=== PATIENT | female | born 1930 | race Caucasian/White ===

== ENCOUNTER → 2017-03-09 | Outpatient (CLI) | payer MEDICARE ==
[~2017-03-09] VITALS: Ht 170.2 cm; Wt 61.2 kg
[~2017-03-09] MED LIST: ASPIRIN 81MG TA81 MG PO; CYANOCOBAL1000 MCG/1 IM; HYDROCHLOROTHIA25 M1 PO; LEVOTHYROXIN0.112 M1 PO; POTASSIUM CHLO10 ME4; PREMARIN0.3 MG PO; PROPRANOLOL HCL20 M1 PO; THE MEDICINE S400 IU PO; TYLENOL ES500 MG PO; VITAMIN B121 TA1 PO
[2017-03-09 13:45] VITALS: BP 150/67; BP 155/63
== END ==
LOC: COP 12:54
DX: N39.0 Urinary tract infection, site not specified (principal)
CPT/HCPCS: J1335

== ENCOUNTER → 2017-03-10 | Outpatient (CLI) | payer MEDICARE ==
[~2017-03-10] VITALS: Ht 170.2 cm; Wt 62.1 kg
[2017-03-10 13:05] VITALS: BP 148/65
[2017-03-10 13:35] VITALS: BP 137/61
== END ==
LOC: COP 10:00
DX: N39.0 Urinary tract infection, site not specified (principal)

== ENCOUNTER 2017-03-11 12:17 | Outpatient (CLI) | payer MEDICARE ==
[2017-03-11 12:32] VITALS: BP 146/70
[2017-03-11 13:02] VITALS: BP 144/68
[2017-03-11 13:15] VITALS: BP 139/68
[2017-03-11 13:22] LABS: BUN 17 mg/dL (7-18)
[2017-03-11 13:23] LABS: GFR (ESTIMATED) 47 ML/MIN (59-)
== END 2017-03-11 13:15 | disposition home or self-care (01) ==
LOC: COP 12:17
PROVIDERS: Urology
DX: N39.0 Urinary tract infection, site not specified (principal)
CPT/HCPCS: J1335

== ENCOUNTER 2017-03-12 12:50 | Outpatient (CLI) | payer MEDICARE ==
[2017-03-12 13:35] VITALS: BP 157/62
[2017-03-12 14:15] VITALS: BP 148/64
[2017-03-12 14:35] VITALS: BP 150/67
--- NOTE | 2017-03-12 15:16 | RADIOLOGY REPORT PS360 ---
CHEST PORTABLE-PICC PLACEMENT CLINICAL INDICATION: PICC line placement evaluation STAT PROCEDURE ROOM 3 ORDERING PHYSICIAN: Eriberto Ortiz MD PATIENT AGE: 87 years COMPARISON: 08/10/2015 FINDINGS: Right upper extremity PICC line has been inserted. The tip is in region of the cavoatrial junction. Unremarkable cardiovascular structures. Bipolar pacemaker is present. There is some vascular crowding in the right lung base. No acute bony anomalies. IMPRESSION: PICC line tip in good position in the region of the cavoatrial junction
== END 2017-03-12 15:40 | disposition home or self-care (01) ==
LOC: COP 12:50
PROC: 05HB33Z Insertion of Infusion Device into Right Basilic Vein, Percutaneous Approach (ICD-10-PCS; principal; 2017-03-12)
DX: N39.0 Urinary tract infection, site not specified (principal)
CPT/HCPCS: C1751; J1335

== ENCOUNTER 2017-03-13 13:00 | Outpatient (CLI) | payer MEDICARE ==
[2017-03-13 13:30] VITALS: BP 149/55
[2017-03-13 14:00] VITALS: BP 148/58
[2017-03-14] MEDS ORDERED: VITAMIN B121 TA1 PO (13:11)
== END 2017-03-13 14:15 | disposition home or self-care (01) ==
LOC: COP 13:00
DX: N39.0 Urinary tract infection, site not specified (principal)
CPT/HCPCS: J1335

== ENCOUNTER 2017-03-14 13:00 | Outpatient (CLI) | payer MEDICARE ==
[2017-03-14] MEDS ORDERED: VITAMIN B121 TA1 PO (13:11)
[2017-03-14 13:25] VITALS: BP 135/58
[2017-03-14 14:00] VITALS: BP 150/60
== END 2017-03-14 14:15 | disposition home or self-care (01) ==
LOC: COP 13:00
DX: N39.0 Urinary tract infection, site not specified (principal)
CPT/HCPCS: J1335

== ENCOUNTER → 2017-03-15 | Outpatient (CLI) | payer MEDICARE ==
[2017-03-15 13:20] VITALS: BP 155/50
[2017-03-15 13:50] VITALS: BP 155/52
== END ==
LOC: COP 12:40
DX: N39.0 Urinary tract infection, site not specified (principal)

== ENCOUNTER 2017-03-16 13:03 | Outpatient (CLI) | payer MEDICARE ==
[2017-03-16 13:02] VITALS: BP 166/72
[2017-03-16 13:28] VITALS: BP 125/62
== END 2017-03-16 13:33 | disposition home or self-care (01) ==
LOC: COP 13:03
DX: N39.0 Urinary tract infection, site not specified (principal)

== ENCOUNTER 2017-03-17 12:45 | Outpatient (CLI) | payer MEDICARE ==
[2017-03-17 12:59] VITALS: BP 141/58
[2017-03-17 13:25] VITALS: BP 128/53
== END 2017-03-17 13:28 | disposition home or self-care (01) ==
LOC: COP 12:45
DX: N39.0 Urinary tract infection, site not specified (principal)

== ENCOUNTER 2017-03-18 12:45 | Outpatient (CLI) | payer MEDICARE ==
[~2017-03-18] VITALS: Ht 170.2 cm; Wt 62.1 kg
[2017-03-18 13:25] VITALS: BP 142/58
[2017-03-18 14:05] VITALS: BP 122/54
== END 2017-03-18 14:20 | disposition home or self-care (01) ==
LOC: COP 12:45
DX: N39.0 Urinary tract infection, site not specified (principal); Z45.2 Encounter for adjustment and management of vascular access device

== ENCOUNTER 2017-03-19 12:45 | Outpatient (CLI) | payer MEDICARE ==
[2017-03-19 13:30] VITALS: BP 132/56
[2017-03-19 14:25] VITALS: BP 154/60
== END 2017-03-19 14:25 | disposition home or self-care (01) ==
LOC: COP 12:45
DX: N39.0 Urinary tract infection, site not specified (principal); Z45.2 Encounter for adjustment and management of vascular access device

== ENCOUNTER → 2017-03-20 | Outpatient (CLI) | payer MEDICARE ==
[2017-03-20 13:02] VITALS: BP 146/57
[2017-03-20 13:35] VITALS: BP 148/55; BP 148/68
== END ==
LOC: COP 14:00
DX: N39.0 Urinary tract infection, site not specified (principal); Z45.2 Encounter for adjustment and management of vascular access device

== ENCOUNTER 2017-03-21 13:00 | Outpatient (CLI) | payer MEDICARE ==
[2017-03-21 13:15] VITALS: BP 121/58
[2017-03-21 13:45] VITALS: BP 128/54
== END 2017-03-21 13:45 | disposition home or self-care (01) ==
LOC: COP 13:00
DX: N39.0 Urinary tract infection, site not specified (principal); Z45.2 Encounter for adjustment and management of vascular access device

== ENCOUNTER 2017-03-22 12:45 | Outpatient (CLI) | payer MEDICARE ==
[2017-03-22 13:05] VITALS: BP 91/67
[2017-03-22 13:44] VITALS: BP 151/63
== END 2017-03-22 13:40 | disposition home or self-care (01) ==
LOC: COP 12:45
DX: N39.0 Urinary tract infection, site not specified (principal); Z45.2 Encounter for adjustment and management of vascular access device

== ENCOUNTER 2017-03-26 12:50 | Outpatient (CLI) | payer MEDICARE | END 2017-03-26 13:10 | disposition home or self-care (01) | LOC: COP 12:50 | DX: N39.0 Urinary tract infection, site not specified (principal); Z45.2 Encounter for adjustment and management of vascular access device; Z48.00 Encounter for change or removal of nonsurgical wound dressing | CPT/HCPCS: G0463 ==

== ENCOUNTER 2017-04-02 13:00 | Outpatient (CLI) | payer MEDICARE ==
[2017-04-02 14:02] LABS: URINE BILIRUBIN - DIPSTICK NEGATIVE (NEG); URINE BLOOD 1+ (NEG)
== END 2017-04-02 13:35 | disposition home or self-care (01) ==
LOC: COP 13:00
PROVIDERS: Urology
DX: N39.0 Urinary tract infection, site not specified (principal); Z45.2 Encounter for adjustment and management of vascular access device; Z48.00 Encounter for change or removal of nonsurgical wound dressing

== ENCOUNTER 2017-04-05 13:55 | Outpatient (CLI) | payer MEDICARE | END 2017-04-05 14:20 | disposition home or self-care (01) | LOC: COP 13:55 | DX: N39.0 Urinary tract infection, site not specified (principal); Z45.2 Encounter for adjustment and management of vascular access device ==

== ENCOUNTER 2017-04-11 13:55 | Outpatient (CLI) | payer MEDICARE | END 2017-04-11 14:15 | disposition home or self-care (01) | LOC: COP 13:55 | DX: Z45.2 Encounter for adjustment and management of vascular access device (principal) | CPT/HCPCS: G0463 ==

== ENCOUNTER 2017-05-20 13:45 | Outpatient (CLI) | payer MEDICARE ==
[~2017-05-20] VITALS: Ht 165.1 cm; Wt 62.1 kg
[~2017-05-20 13:45] MED LIST changes: +LEVOTHYROXIN0.075 M1; +VITAMIN D1000 IU; +[UNRECOGNIZED DRUG - CODE] TP
[2017-05-20 14:30] VITALS: BP 163/63
[2017-05-20 15:00] VITALS: BP 134/58
[2017-05-20 15:10] VITALS: BP 141/58
== END 2017-05-20 15:35 | disposition home or self-care (01) ==
LOC: COP 13:45
DX: N39.0 Urinary tract infection, site not specified (principal)
CPT/HCPCS: J1335

== ENCOUNTER 2017-05-21 14:00 | Outpatient (CLI) | payer MEDICARE ==
[2017-05-21 14:20] VITALS: BP 146/84
[2017-05-21 14:50] VITALS: BP 151/71
[2017-05-21 15:20] VITALS: BP 149/67
== END 2017-05-21 15:25 | disposition home or self-care (01) ==
LOC: COP 14:00
DX: N39.0 Urinary tract infection, site not specified (principal)
CPT/HCPCS: J1335

== ENCOUNTER 2017-05-22 14:08 | Outpatient (CLI) | payer MEDICARE ==
[2017-05-22 14:27] VITALS: BP 150/67
[2017-05-22 14:56] VITALS: BP 118/59
[2017-05-22 15:20] VITALS: BP 124/68
== END 2017-05-22 15:20 | disposition home or self-care (01) ==
LOC: COP 14:08
DX: N39.0 Urinary tract infection, site not specified (principal)
CPT/HCPCS: J1335

== ENCOUNTER 2017-05-23 13:30 | Outpatient (CLI) | payer MEDICARE ==
[~2017-05-23] VITALS: Ht 165.1 cm; Wt 62.1 kg
[2017-05-23 14:00] VITALS: BP 150/62
[2017-05-23 14:35] VITALS: BP 150/61
== END 2017-05-23 14:55 | disposition home or self-care (01) ==
LOC: COP 13:30
DX: N39.0 Urinary tract infection, site not specified (principal)
CPT/HCPCS: J1335

== ENCOUNTER 2017-05-24 14:18 | Outpatient (CLI) | payer MEDICARE ==
[~2017-05-24] VITALS: Ht 165.1 cm; Wt 62.1 kg
[2017-05-24 14:20] VITALS: BP 153/59
[2017-05-24 14:50] VITALS: BP 136/60
[2017-05-24 15:00] VITALS: BP 123/70
== END 2017-05-24 15:30 | disposition home or self-care (01) ==
LOC: COP 14:18
DX: N39.0 Urinary tract infection, site not specified (principal)
CPT/HCPCS: J1335

== ENCOUNTER 2017-05-25 13:46 | Outpatient (CLI) | payer MEDICARE ==
[2017-05-25 14:25] VITALS: BP 157/70
[2017-05-25 14:45] VITALS: BP 143/59
== END 2017-05-25 14:49 | disposition home or self-care (01) ==
LOC: COP 13:46
DX: N39.0 Urinary tract infection, site not specified (principal)
CPT/HCPCS: J1335

== ENCOUNTER 2017-05-26 13:45 | Outpatient (CLI) | payer MEDICARE ==
[2017-05-26 14:02] VITALS: BP 148/65
[2017-05-26 14:32] VITALS: BP 142/60
== END 2017-05-26 14:37 | disposition home or self-care (01) ==
LOC: COP 13:45
DX: N39.0 Urinary tract infection, site not specified (principal)
CPT/HCPCS: J1335

== ENCOUNTER 2017-05-27 14:00 | Outpatient (CLI) | payer MEDICARE ==
[2017-05-27 14:36] VITALS: BP 149/59
[2017-05-27 15:26] VITALS: BP 148/62
[2017-05-27 15:27] VITALS: BP 148/62
== END 2017-05-27 15:15 | disposition home or self-care (01) ==
LOC: COP 14:00
DX: N39.0 Urinary tract infection, site not specified (principal)
CPT/HCPCS: J1335

== ENCOUNTER 2017-05-29 13:57 | Outpatient (CLI) | payer MEDICARE ==
[2017-05-29 14:08] VITALS: BP 132/74
[2017-05-29 14:40] VITALS: BP 129/76
== END 2017-05-29 14:45 | disposition home or self-care (01) ==
LOC: COP 13:57
DX: N39.0 Urinary tract infection, site not specified (principal)
CPT/HCPCS: J1335